=== PATIENT | female | born 1995 | race Caucasian/White ===

== ENCOUNTER 2016-08-28 09:44 | Emergency (ER) | payer SELFPAY ==
[2016-08-28 10:15] VITALS: BP 122/80
--- NOTE | 2016-08-28 10:44 | UC ---
Throat Pain/Nasal Cedric HPI - HPI Summary HPI Summary: complaint of nasal congestion cough and sore throat for 2-3 days productive cough with phlegm at times noticed a painful lump on the back of her neck for 2 days next to a pimple in the back of her neck denies fever and chills denies N/V/D denies ear pain, headache not taking any medications for symptoms - History of Current Complaint Chief Complaint: UCRespiratory Stated Complaint: SORE THROAT RUNNY NOSE Time Seen by Provider: 08/28/16 10:29 Hx Obtained From: Patient Hx Last Menstrual Period: unknown - Allergies/Home Medications Allergies/Adverse Reactions: Allergies Allergy/AdvReac Type Severity Reaction Status Date / Time No Known Allergies Allergy Verified 08/28/16 10:15 Home Medications: Home Medications Menthol (Mouth-Throat) [Cough Drops] 7 mg MT SEE INSTRUCTIONS PRN 08/28/16 [ History Confirmed 08/28/16] Phenol (Antiseptic) [Chloraseptic] 1.4 % MT BID PRN 08/28/16 [History Confirmed 08/28/16] PMH/Surg Hx/FS Hx/Imm Hx Previously Healthy: Yes - Surgical History Surgical History: None - Family History Known Family History: Positive: Cardiac Disease, Hypertension, Diabetes - Social History Occupation: Employed Full-time Lives: With Family Alcohol Use: None Substance Use Type: None Smoking Status (MU): Light Every Day Tobacco Smoker Type: Cigarettes Amount Used/How Often: 1/2 PPD Have You Smoked in the Last Year: Yes Household Exposure Type: Cigarettes Cessation Counseling: Patient Advised to Stop Review of Systems Constitutional: Negative Skin: Negative Eyes: Negative ENT: Sore Throat, Nasal Discharge Respiratory: Cough Cardiovascular: Negative Gastrointestinal: Negative Genitourinary: Negative Motor: Negative Neurovascular: Negative Musculoskeletal: Negative Neurological: Negative Psychological: Negative All Other Systems Reviewed And Are Negative: Yes Physical Exam Triage Information Reviewed: Yes Appearance: No Pain Distress, Well-Nourished Vital Signs: Initial Vital Signs Temp 98.7 F 08/28/16 10:10 Pulse 83 08/28/16 10:10 Resp 22 08/28/16 10:10 BP 122/80 08/28/16 10:10 Pulse Ox 100 08/28/16 10:10 Vital Signs Reviewed: Yes Eyes: Positive: Conjunctiva Clear ENT: Positive: Pharyngeal erythema, Nasal congestion, Nasal drainage, TMs normal. Negative: TM bulging, TM dull, TM red, Tonsillar swelling, Tonsillar exudate Neck: Positive: Enlarged Nodes @ - left side of neck next to small open sore, tendern to palpitation Respiratory: Positive: Lungs clear, Normal breath sounds, No respiratory distress, No accessory muscle use Cardiovascular: Positive: RRR, No Murmur, Pulses Normal Abdomen Description: Positive: Nontender, Soft Bowel Sounds: Positive: Present Musculoskeletal Exam: Normal Neurological: Positive: Alert Psychological Exam: Normal Skin: Positive: Other - reyes of neck with 3mm open sore Throat Pain/Nasal Course/Dx - Differential Dx/Diagnosis Differential Diagnosis/HQI/PQRI: Pharyngitis, URI, Other Provider Diagnoses: URI, lympahdenopathy Discharge - Discharge Plan Condition: Stable Disposition: HOME Prescriptions: Oxymetazoline 0.05% NASAL SPR* [Afrin 0.05% NASAL SPRAY*] 1 spray NASAL Q12H #1 btl Patient Education Materials: Upper Respiratory Infection (ED), Lymphedema (ED) Forms: *Work Release Referrals: Samy ORTEGA,Sonido Gamez [Primary Care Provider] - Additional Instructions: you have a sore and swollen lymphnode on your neck please keep the sore clean and dry and apply bacitracin 2x day Increase fluids and rest Take acetaminophen or ibuprofen for fever or pain Please review your discharge instructions. If your symptoms do not improve please call your primary care provider or return to urgent care. VIRAL UPPER RESPIRATORY INFECTION (COMMON COLD) What is Viral Upper Respiratory Infection? Viral upper respiratory infection is the medical term for the common cold. Respiratory infections can be caused by either a virus or bacteria. The common cold is caused by a virus. The virus travels through the air and can be passed easily from one person to another. This is one reason that it is so important to cover your mouth when you cough or sneeze. When you cover your mouth you will get the virus on your hands. If you touch something with that hand the virus is spread to the object you touch. Because of this you should be sure to wash your hands often when you have a cold. Symptoms usually begin 1 to 3 days after the virus takes hold in your body. Other people can catch your cold even before you start to notice symptoms, which is one reason why colds are hard to prevent. Symptoms May Include: Scratchiness or tickling in the throat Sore throat Stuffy nose Generalized aches and pains Coughing or sneezing Feeling tired Treatment Recommendations: Drink plenty of clear, nonalcoholic fluids, such as water, sports drinks, or juice. For example, an average adult should drink 8 ounces every hour, a child 6 to 10 years should drink 4 ounces every hour, and a child under 6 should drink 1 to 2 ounces every hour. You should rest as much as possible. You can use a cool-mist humidifier or steam vaporizer to increase air moisture. This will make it easier to breathe. Remember that a steam vaporizer may contain hot water that can cause severe herring. If you smoke, stopsmoke irritates bronchial passages. If you are coughing up mucus, and milk seems to make the sputum thicker, do not eat or drink foods that contain milk. You want to try to cough up mucous whenever possible so that you dont get pneumonia. Do not use cough suppressant medicine without your healthcare providers OK. You should take all medications prescribed until completely gone, or as instructed. Non-prescription medicine such as acetaminophen (Tylenol) or ibuprofen (Motrin , Advil) may help your aches, pains, and fever. Do not take someone else's medicine, or penicillin tablets that you may have saved. You could cause a more serious problem than you already have. Don't bundle up to sweat out a fever. It only makes your fever worse. If you feel cold, cover up; if you feel warm, dress lightly.
== END 2016-08-28 11:04 | disposition home or self-care (01) ==
LOC: UCCORT 09:44
DX: J06.9 Acute upper respiratory infection, unspecified (principal); R59.1 Generalized enlarged lymph nodes; F17.210 Nicotine dependence, cigarettes, uncomplicated
CPT/HCPCS: 99212; G0463

== ENCOUNTER 2016-08-29 10:47 | Emergency (ER) | payer OTHER ==
[2016-08-29 11:43] VITALS: BP 111/72
--- NOTE | 2016-08-29 12:02 | UC ---
Throat Pain/Nasal Cedric HPI - HPI Summary HPI Summary: 20 year old female with sore throat, cough, congestion, ear pressure and chest congestion for 4-5 days. She tried her nasal spray with little relief and still with cough. - History of Current Complaint Chief Complaint: UCGeneralIllness Stated Complaint: RESPIRATORY Time Seen by Provider: 08/29/16 11:47 Hx Obtained From: Patient, Family/Safety Counselor Hx Last Menstrual Period: has nexplanon ?: No Onset/Duration: Gradual Onset Cough: Nonproductive Associated Signs & Symptoms: Positive: Hoarseness, Nasal Discharge. Negative: Sinus Discomfort, Fever, Vomiting, Rash - Allergies/Home Medications Allergies/Adverse Reactions: Allergies Allergy/AdvReac Type Severity Reaction Status Date / Time No Known Allergies Allergy Verified 08/29/16 11:39 PMH/Surg Hx/FS Hx/Imm Hx Previously Healthy: Yes - Surgical History Surgical History: None - Family History Known Family History: Positive: Cardiac Disease, Hypertension, Diabetes - Social History Lives: With Family Alcohol Use: None Substance Use Type: None Smoking Status (MU): Heavy Every Day Tobacco Smoker Type: Cigarettes Amount Used/How Often: 1/2 PPD Have You Smoked in the Last Year: Yes Household Exposure Type: Cigarettes Cessation Counseling: Patient Advised to Stop Review of Systems Constitutional: Fatigue ENT: Sore Throat, Ear Ache Respiratory: Cough All Other Systems Reviewed And Are Negative: Yes Physical Exam Triage Information Reviewed: Yes Appearance: Well-Appearing, No Pain Distress, Well-Nourished Vital Signs: Initial Vital Signs Temp 98.2 F 08/29/16 11:40 Pulse 88 08/29/16 11:40 Resp 16 08/29/16 11:40 BP 111/72 08/29/16 11:40 Pulse Ox 100 08/29/16 11:40 Vital Signs Reviewed: Yes Eye Exam: Normal ENT Exam: Normal ENT: Positive: Hearing grossly normal, Pharyngeal erythema, Nasal congestion, Nasal drainage, TMs normal. Negative: Tonsillar swelling, Tonsillar exudate Dental Exam: Normal Neck exam: Normal Neck: Positive: 1 Respiratory Exam: Normal Cardiovascular Exam: Normal Musculoskeletal Exam: Normal Neurological Exam: Normal Psychological Exam: Normal Skin Exam: Normal Throat Pain/Nasal Course/Dx - Differential Dx/Diagnosis Differential Diagnosis/HQI/PQRI: Pharyngitis, Sinusitis, Tonsillitis, URI Provider Diagnoses: Viral Pharyngitis / URI Discharge - Discharge Plan Condition: Good Disposition: HOME Prescriptions: Benzonatate [Benzonatate 200 MG CAP] 200 mg PO TID PRN #20 cap PRN Reason: Cough Patient Education Materials: Pharyngitis (ED) Forms: *Work Release Referrals: Sonido Bailey [Primary Care Provider] - 3 Days Additional Instructions: As we discussed your strep testing was negative at this time. You have a viral infection at this time and antibiotics can not help that.
== END 2016-08-29 12:37 | disposition home or self-care (01) ==
LOC: UCCORT 10:47
DX: J06.9 Acute upper respiratory infection, unspecified (principal); F17.210 Nicotine dependence, cigarettes, uncomplicated
CPT/HCPCS: 87651; 99212; G0463

== ENCOUNTER 2016-11-27 16:21 | Emergency (ER) | payer OTHER ==
[2016-11-27] MEDS ORDERED: Ondansetron TAB* 4 MG PO ONE (17:45)
[2016-11-27] MEDS ORDERED: Ondansetron ODT TAB* 4 MG PO ONE (17:58)
--- NOTE | 2016-11-27 18:07 | UC ---
Abdominal Pain Female HPI - HPI Summary HPI Summary: 21 yo female with onset yesterday of n/v x 3 intermittent diffuse crampy abd pain has had a sore throat mild runny nose - History of Current Complaint Chief Complaint: UCGeneralIllness Stated Complaint: SORE THROAT,RUNNY NOSE,VOMITING Time Seen by Provider: 11/27/16 17:40 Hx Obtained From: Patient Hx Last Menstrual Period: IMPLANON Onset/Duration: Gradual Onset, Still Present Timing: Constant Severity Initially: Mild Severity Currently: Mild Pain Intensity: 3 Pain Scale Used: 0-10 Numeric Location: Diffuse Radiates: No Character: Cramping Aggravating Factor(s): Food Alleviating Factor(s): Nothing Associated Signs and Symptoms: Positive: Nausea, Vomiting, Diarrhea - x1 Allergies/Adverse Reactions: Allergies Allergy/AdvReac Type Severity Reaction Status Date / Time No Known Allergies Allergy Verified 11/27/16 16:59 Home Medications: Home Medications Dextromethorphan-Phenylephrine [Daytime Multi Symptom Col] 1 cap PO DAILY PRN [History Confirmed 11/27/16] PMH/Surg Hx/FS Hx/Imm Hx Previously Healthy: Yes - Surgical History Surgical History: None - Family History Known Family History: Positive: Cardiac Disease, Hypertension, Diabetes - Social History Alcohol Use: None Substance Use Type: None Smoking Status (MU): Heavy Every Day Tobacco Smoker Type: Cigarettes Amount Used/How Often: 1/2 PPD Length of Time of Smoking/Using Tobacco: 10 YRS Have You Smoked in the Last Year: Yes Household Exposure Type: Cigarettes Review of Systems Constitutional: Negative Skin: Negative Eyes: Negative ENT: Negative Respiratory: Negative Cardiovascular: Negative Gastrointestinal: Abdominal Pain, Vomiting - x3, Diarrhea - x1, Nausea Genitourinary: Negative Motor: Negative Neurovascular: Negative Musculoskeletal: Negative Neurological: Negative Psychological: Negative Is Patient Immunocompromised?: No All Other Systems Reviewed And Are Negative: Yes Physical Exam Triage Information Reviewed: Yes Appearance: Well-Appearing, No Pain Distress, Well-Nourished Vital Signs: Initial Vital Signs Temp 97.9 F 11/27/16 16:52 Pulse 68 11/27/16 16:52 Resp 18 11/27/16 16:52 BP 107/60 11/27/16 16:52 Pulse Ox 100 11/27/16 16:52 Vital Signs Reviewed: No Eyes: Positive: Conjunctiva Clear ENT: Positive: Hearing grossly normal, Nasal drainage, TMs normal, Tonsillar swelling. Negative: Pharyngeal erythema, Nasal congestion, Tonsillar exudate, Trismus, Muffled/hoarse voice Neck: Positive: Supple, Nontender, No Lymphadenopathy Respiratory: Positive: Lungs clear, Normal breath sounds, No respiratory distress Cardiovascular: Positive: RRR, No Murmur Abdomen Description: Positive: Soft, Other: - able to jump up and down without causing pain. Negative: Nontender - diffusely tender to deep palpation, CVA Tenderness (R), CVA Tenderness (L), Hepatomegaly, Peritoneal Signs Bowel Sounds: Positive: Present Musculoskeletal: Positive: ROM Intact, No Edema Neurological: Positive: Alert Psychological Exam: Normal Skin Exam: Normal Abd Pain Female Course/Dx - Course Course Of Treatment: RAPID STREP (-). HCG (-). Udip benign - Differential Dx/Diagnosis Provider Diagnoses: viral gastroenteritis. viral pharyngitis Discharge - Discharge Plan Condition: Stable Disposition: HOME Prescriptions: Ondansetron TAB* [Zofran Tab*] 4 mg PO Q6H PRN #6 tab PRN Reason: Nausea Patient Education Materials: Gastroenteritis (ED) Forms: *Work Release Referrals: Samy ORTEGA,Sonido Gamez [Primary Care Provider] - If Needed Additional Instructions: I suggest you get rechecked here tomorrow if not better TO ER FOR : fever increased pain worsening symptoms
[2016-11-27 18:21] VITALS: BP 112/69
== END 2016-11-27 18:30 | disposition home or self-care (01) ==
LOC: UCCORT 16:21
DX: A08.4 Viral intestinal infection, unspecified (principal); J02.8 Acute pharyngitis due to other specified organisms; Z32.02 Encounter for pregnancy test, result negative; F17.210 Nicotine dependence, cigarettes, uncomplicated
CPT/HCPCS: 81003; 84702; 87086; 87106; 87651; 99212; A9270-GY; G0463

== ENCOUNTER 2018-03-24 09:30 | Emergency (ER) | payer SELFPAY ==
[2018-03-24 10:41] VITALS: BP 131/78
--- NOTE | 2018-03-24 10:52 | UC ---
Throat Pain/Nasal Cedric HPI - HPI Summary HPI Summary: Pt c/o worsening cough, nasal congestion, ST, sinus pressure. - History of Current Complaint Chief Complaint: UCGeneralIllness Stated Complaint: ST Time Seen by Provider: 03/24/18 10:39 Hx Obtained From: Patient Hx Last Menstrual Period: IMPLANON ?: No Onset/Duration: Gradual Onset, Lasting Days, Worse Since - onset Severity: Moderate Pain Intensity: 6 Cough: Nonproductive Associated Signs & Symptoms: Positive: Dysphagia, Sinus Discomfort, Fever - subjective - Epiglottits Risk Factors Epiglottis Risk Factors: Negative - Allergies/Home Medications Allergies/Adverse Reactions: Allergies Allergy/AdvReac Type Severity Reaction Status Date / Time No Known Allergies Allergy Verified 11/27/16 16:59 Home Medications: Home Medications D-Methorphan/PE/Acetaminophen [Cold Multi-Symptom Caplet] 1 each PO Q4H [History Confirmed 03/24/18] Etonogestrel [Nexplanon] 1 each SUBCUT DAILY 03/24/18 [History Confirmed ] PMH/Surg Hx/FS Hx/Imm Hx Previously Healthy: Yes - Surgical History Surgical History: None - Family History Known Family History: Positive: Cardiac Disease, Hypertension, Diabetes - Social History Occupation: Employed Full-time Lives: With Family Alcohol Use: None Substance Use Type: None Smoking Status (MU): Heavy Every Day Tobacco Smoker Type: Cigarettes Amount Used/How Often: 1/2 PPD Length of Time of Smoking/Using Tobacco: 10 YRS Have You Smoked in the Last Year: Yes Household Exposure Type: Cigarettes Review of Systems All Other Systems Reviewed And Are Negative: Yes Constitutional: Positive: Fever, Chills, Fatigue Skin: Positive: Negative Eyes: Positive: Negative ENT: Positive: Sore Throat, Ear Ache, Sinus Congestion Respiratory: Positive: Cough Cardiovascular: Positive: Negative Gastrointestinal: Positive: Negative Genitourinary: Positive: Negative Motor: Positive: Negative Neurovascular: Positive: Negative Musculoskeletal: Positive: Negative Neurological: Positive: Headache Psychological: Positive: Negative Is Patient Immunocompromised?: No Physical Exam Triage Information Reviewed: Yes Appearance: Ill-Appearing Vital Signs: Initial Vital Signs Temp 97.9 F 03/24/18 10:31 Pulse 101 03/24/18 10:31 Resp 16 03/24/18 10:31 BP 131/78 03/24/18 10:31 Pulse Ox 100 03/24/18 10:31 Vital Signs Reviewed: Yes Eye Exam: Normal ENT: Positive: Pharyngeal erythema, Nasal congestion, Tonsillar swelling, Sinus tenderness Dental Exam: Normal Neck exam: Normal Respiratory Exam: Normal Cardiovascular Exam: Normal Musculoskeletal Exam: Normal Neurological Exam: Normal Psychological Exam: Normal Skin Exam: Normal Throat Pain/Nasal Course/Dx - Differential Dx/Diagnosis Differential Diagnosis/HQI/PQRI: Influenza, Pharyngitis, Sinusitis, Tonsillitis , URI Provider Diagnosis: Tonsillitis Discharge - Sign-Out/Discharge Documenting (check all that apply): Patient Departure All imaging exams completed and their final reports reviewed: No Studies - Discharge Plan Condition: Stable Disposition: HOME Prescriptions: Amoxicillin PO (*) [Amoxicillin 500 MG CAP*] 500 mg PO Q12H #20 cap predniSONE TAB* [Deltasone 20 MG TAB*] 20 mg PO DAILY #4 tab Patient Education Materials: Tonsillitis (ED) Referrals: Sonido Bailey [Primary Care Provider] - If Needed - Billing Disposition and Condition Condition: STABLE Disposition: Home
== END 2018-03-24 11:03 | disposition home or self-care (01) ==
LOC: UCCORT 09:30
DX: J03.90 Acute tonsillitis, unspecified (principal); F17.210 Nicotine dependence, cigarettes, uncomplicated
CPT/HCPCS: 99212; G0463

== ENCOUNTER 2018-04-29 08:47 | Emergency (ER) | payer OTHER ==
[2018-04-29 09:19] VITALS: BP 136/87
--- NOTE | 2018-04-29 09:55 | UC ---
Respiratory Complaint HPI - HPI Summary HPI Summary: 1. chest congestion / cough x 3 days, nasal congestion , pnd sore throat, fever, chills, body aches 2. swollen / redness of left thumb x 1 day, tender to touch , ? insect bite - History of Current Complaint Chief Complaint: UCRespiratory Stated Complaint: HEAD/CHEST CONGESTION Time Seen by Provider: 04/29/18 09:45 Hx Obtained From: Patient Hx Last Menstrual Period: 04/27/18 ?: No Onset/Duration: Gradual Onset, Lasting Days - 2, Still Present Timing: Constant Severity Initially: Moderate Severity Currently: Moderate Pain Intensity: 5 Character: Cough: Nonproductive Aggravating Factors: Exertion, Deep Breaths Alleviating Factors: Nothing Associated Signs And Symptoms: Positive: Fever, Chills. Negative: Dyspnea, Pleuritic Chest Pain - Allergies/Home Medications Allergies/Adverse Reactions: Allergies Allergy/AdvReac Type Severity Reaction Status Date / Time No Known Allergies Allergy Verified 04/29/18 09:17 PMH/Surg Hx/FS Hx/Imm Hx Previously Healthy: Yes - Surgical History Surgical History: None - Family History Known Family History: Positive: Cardiac Disease, Hypertension, Diabetes - Social History Alcohol Use: None Substance Use Type: None Smoking Status (MU): Heavy Every Day Tobacco Smoker Type: Cigarettes Amount Used/How Often: 1/2 PPD Length of Time of Smoking/Using Tobacco: Since Age 10 Have You Smoked in the Last Year: Yes Household Exposure Type: Cigarettes Review of Systems All Other Systems Reviewed And Are Negative: Yes Constitutional: Positive: Fever, Chills, Fatigue Skin: Positive: Negative Eyes: Positive: Negative ENT: Positive: Sore Throat, Nasal Discharge Respiratory: Positive: Cough Cardiovascular: Positive: Negative Gastrointestinal: Positive: Negative Genitourinary: Positive: Negative Is Patient Immunocompromised?: No Physical Exam Triage Information Reviewed: Yes Appearance: Well-Appearing, No Pain Distress, Well-Nourished Vital Signs: Initial Vital Signs Temp 98.3 F 04/29/18 09:14 Pulse 86 04/29/18 09:14 Resp 20 04/29/18 09:14 BP 136/87 04/29/18 09:14 Pulse Ox 99 04/29/18 09:14 Vital Signs Reviewed: Yes Eye Exam: Normal Eyes: Positive: Conjunctiva Clear ENT: Positive: Normal ENT inspection, Hearing grossly normal, Pharynx normal, Nasal drainage Neck: Positive: Supple, Nontender, No Lymphadenopathy Respiratory: Positive: Chest non-tender, Lungs clear, Normal breath sounds Cardiovascular: Positive: RRR, No Murmur, Pulses Normal Skin: Positive: Other - left thumb : + erythema , swelling , tender to touch UC Diagnostic Evaluation - Laboratory O2 Sat by Pulse Oximetry: 99 Respiratory Course/Dx - Differential Dx/Diagnosis Provider Diagnosis: Acute bronchitis, Cellulitis, finger Discharge - Sign-Out/Discharge Documenting (check all that apply): Patient Departure All imaging exams completed and their final reports reviewed: No Studies - Discharge Plan Condition: Stable Disposition: HOME Prescriptions: Cephalexin CAP* [Keflex CAP*] 500 mg PO TID #21 cap Patient Education Materials: Cellulitis (ED), Acute Bronchitis (ED) Forms: *Work Release Referrals: Samy ORTEGA,Sonido Gamez [Primary Care Provider] - 7 Days - Billing Disposition and Condition Condition: STABLE Disposition: Home
== END 2018-04-29 09:57 | disposition home or self-care (01) ==
LOC: UCCORT 08:47
DX: J20.9 Acute bronchitis, unspecified (principal); L03.012 Cellulitis of left finger; F17.210 Nicotine dependence, cigarettes, uncomplicated; R52 Pain, unspecified
CPT/HCPCS: 99212; G0463

== ENCOUNTER 2018-10-15 11:13 | Emergency (ER) | payer OTHER ==
[2018-10-15 11:37] VITALS: BP 123/70
--- NOTE | 2018-10-15 12:05 | UC ---
Hand/Wrist HPI - HPI Summary HPI Summary: 22 yo female presents with LEFT hand redness and pain. 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 Later that night her left hand started to get red and swollen. Today the redness and swelling have increased. She denies fever, chills , decreased ROM. Nothing OTC for her symptoms. - History Of Current Complaint Chief Complaint: UCSkin Stated Complaint: L HAND SWOLLEN Hx Obtained From: Patient Hx Last Menstrual Period: 2 days ago Onset/Duration: Gradual Onset Severity Initially: Mild Severity Currently: Moderate Pain Intensity: 6 Pain Scale Used: 0-10 Numeric - Allergies/Home Medications Allergies/Adverse Reactions: Allergies Allergy/AdvReac Type Severity Reaction Status Date / Time No Known Allergies Allergy Verified 10/15/18 11:38 PMH/Surg Hx/FS Hx/Imm Hx - Additional Past Medical History Additional PMH: None - Surgical History Surgical History: None - Family History Known Family History: Positive: Cardiac Disease, Hypertension, Diabetes - Social History Occupation: Employed Full-time Lives: With Family Alcohol Use: Occasionally Substance Use Type: Excessive Caffeine Smoking Status (MU): Heavy Every Day Tobacco Smoker Type: Cigarettes Amount Used/How Often: 1/2 PPD Length of Time of Smoking/Using Tobacco: Since Age 10 Have You Smoked in the Last Year: Yes Household Exposure Type: Cigarettes Review of Systems All Other Systems Reviewed And Are Negative: Yes Constitutional: Positive: Negative Skin: Positive: Other - redness and swelling left hand Respiratory: Positive: Negative Cardiovascular: Positive: Negative Neurovascular: Positive: Negative Musculoskeletal: Positive: Negative Neurological: Positive: Negative Psychological: Positive: Negative Physical Exam - Summary Physical Exam Summary: GENERAL: NAD. WDWN. No pain distress. SKIN: LEFT HAND: Mild edema and erythema whole hand extending into left wrist and slightly/faintly to distal 1/3 forearm. Mild TTP. Scant bug bites without open wound, drainage, streaking, or FB. NECK: Supple. Nontender. No lymphadenopathy. CHEST: No accessory muscle use. Breathing comfortably and in no distress. CV: Pulses intact. Cap refill <2seconds MSK: Left hand: FROM without pain to left hand, wrist, and all digits. NEURO: Alert. PSYCH: Age appropriate behavior. Triage Information Reviewed: Yes Vital Signs: Initial Vital Signs Temp 97.9 F 10/15/18 11:30 Pulse 79 10/15/18 11:30 Resp 16 10/15/18 11:30 BP 123/70 10/15/18 11:30 Pulse Ox 100 10/15/18 11:30 Vital Signs Reviewed: Yes Hand/Wrist Course/Dx - Course Course Of Treatment: Cellulitis left hand - will place her on clindamycin. Advised to rest, ice, and elevate her hand to reduce pain and swelling. If she develops a fever, worsening redness/pain/swelling, or new symptoms to go to the ER. - Differential Dx/Diagnosis Provider Diagnosis: Cellulitis of left hand Discharge - Sign-Out/Discharge Documenting (check all that apply): Patient Departure All imaging exams completed and their final reports reviewed: No Studies - Discharge Plan Condition: Stable Disposition: HOME Prescriptions: Clindamycin HCl 300 mg PO TID #21 capsule Patient Education Materials: Cellulitis (DC) Forms: *Work Release Referrals: Sonido Pablo PA [Primary Care Provider] - Additional Instructions: If you develop a fever, shortness of breath, chest pain, new or worsening symptoms - please call your PCP or go to the ED immediately. If the redness spreads, you have increased pain, or if you develop a fever - please go to the ER immediately - Billing Disposition and Condition Condition: STABLE Disposition: Home - Attestation Statements Provider Attestation: I was available for consult. This patient was seen by the GAVIN. The patient was not presented to , seen by or examined by wy -Jaiv Arevalo MD
== END 2018-10-15 12:33 | disposition home or self-care (01) ==
LOC: UCCORT 11:13
DX: L03.114 Cellulitis of left upper limb (principal); F17.210 Nicotine dependence, cigarettes, uncomplicated
CPT/HCPCS: 99211; G0463

== ENCOUNTER 2018-12-12 20:39 | Emergency (ER) | payer OTHER ==
[2018-12-12 21:14] VITALS: BP 127/81
--- NOTE | 2018-12-12 21:34 | UC ---
Throat Pain/Nasal Cedric HPI - HPI Summary HPI Summary: 23-year-old woman comes in with a chief complaint of sore throat and upper respiratory tract infection symptoms for the last couple of days. Throat hurts more when she swallows. She's tried some [id number] medicines which to help some with the symptoms. No wheezing or shortness of breath. Patient's also had an itchy rash for the last several weeks. She's been treated with antibiotics and nothing seems to make it better. It's around her belt line is on her arms it's not on her hands. Her son also has the same rash. - History of Current Complaint Chief Complaint: UCGeneralIllness Stated Complaint: sore throat/headache Time Seen by Provider: 12/12/18 21:20 Hx Last Menstrual Period: 10/26/18 Pain Intensity: 5 - Allergies/Home Medications Allergies/Adverse Reactions: Allergies Allergy/AdvReac Type Severity Reaction Status Date / Time No Known Allergies Allergy Verified 12/12/18 21:14 PMH/Surg Hx/FS Hx/Imm Hx Previously Healthy: Yes - Surgical History Surgical History: None - Family History Known Family History: Positive: Cardiac Disease, Hypertension, Diabetes - Social History Alcohol Use: Occasionally Substance Use Type: None Smoking Status (MU): Light Every Day Tobacco Smoker Type: Cigarettes Amount Used/How Often: 1/2 PPD Length of Time of Smoking/Using Tobacco: Since Age 10 Have You Smoked in the Last Year: Yes Household Exposure Type: Cigarettes Review of Systems All Other Systems Reviewed And Are Negative: Yes Constitutional: Positive: Other - SEE HPI Skin: Positive: Other - SEE HPI Eyes: Positive: Negative ENT: Positive: Sore Throat, Nasal Discharge Respiratory: Positive: Negative Cardiovascular: Positive: Negative Gastrointestinal: Positive: Negative Motor: Positive: Negative Neurovascular: Positive: Negative Musculoskeletal: Positive: Negative Neurological: Positive: Negative Psychological: Positive: Negative Is Patient Immunocompromised?: No Physical Exam Triage Information Reviewed: Yes Appearance: No Pain Distress, Well-Nourished, Ill-Appearing - MILD Vital Signs: Initial Vital Signs Temp 97.6 F 12/12/18 21:09 Pulse 76 12/12/18 21:09 Resp 16 12/12/18 21:09 BP 127/81 12/12/18 21:09 Pulse Ox 100 12/12/18 21:09 Vital Signs Reviewed: Yes Eye Exam: Normal Eyes: Positive: Conjunctiva Clear ENT: Positive: Pharyngeal erythema, Nasal congestion, Nasal drainage, Tonsillar swelling, Uvula midline. Negative: Muffled voice, Hoarse voice Neck: Positive: Supple Respiratory: Positive: Lungs clear, Normal breath sounds, No respiratory distress Cardiovascular: Positive: RRR Musculoskeletal: Positive: Strength Intact, ROM Intact Neurological: Positive: Alert, Muscle Tone Normal Psychological: Positive: Age Appropriate Behavior Skin: Positive: Other - Scattered rash on the arms and about the belt line individual slightly raised non-erythematous lesions 1 mm to 4 mm in diameter. Many of them have been scratched with subsequent scratch luna and scabs. I do not see any between the webbing of the fingers. Throat Pain/Nasal Course/Dx - Course Course Of Treatment: DISCUSSED VIRAL VERSES BACTERIAL INFECTIONS AND THE ROLE OF ANTIBIOTIC. PATIENT PREFERS TO BE ON ANTIBIOTICS AT THIS TIME. We discussed the rash and decided to treat for scabies although it's not apparent that it is definitely scabies. I recommended that if the Elimite did not solve the rash then patient should follow-up with dermatology. - Differential Dx/Diagnosis Provider Diagnosis: Pharyngitis, Rash Discharge ED - Sign-Out/Discharge Documenting (check all that apply): Patient Departure All imaging exams completed and their final reports reviewed: No Studies - Discharge Plan Condition: Stable Disposition: HOME Prescriptions: Cephalexin CAP* [Keflex CAP*] 500 mg PO TID #20 cap Permethrin [Elimite] 1 applic TOPICAL SEE INSTRUCTIONS #60 gm Patient Education Materials: Pharyngitis (ED), Scabies (ED), Acute Rash (ED) Referrals: Sonido Pablo PA [Primary Care Provider] - Ericka Mcclellan [Medical Doctor] - Bar Dennison MD [Medical Doctor] - Additional Instructions: FOLLOW UP WITH DEMATOLOGY IF NOT COMPLETELY IMPROVED. GET RECHECKED SOONER IF WORSE OR ANY QUESTIONS OR CONCERNS. - Billing Disposition and Condition Condition: STABLE Disposition: Home
[2018-12-12] MEDS ORDERED: Cephalexin CAP* 500 MG PO ONE (21:37)
== END 2018-12-12 21:55 | disposition home or self-care (01) ==
LOC: UCCORT 20:39
DX: J02.9 Acute pharyngitis, unspecified (principal); R21 Rash and other nonspecific skin eruption; F17.210 Nicotine dependence, cigarettes, uncomplicated
CPT/HCPCS: 84702; 87651; 99212; A9270-GY; G0463